=== PATIENT | female | born 1965 | race Native Hawaiian/Other Pacific Islander ===

== ENCOUNTER 2020-11-05 13:11 | Outpatient (CLI) | payer BC, OTHER | END 2020-11-05 22:18 | disposition home or self-care (01) | LOC: INF 13:11 | PROVIDERS: ATTEND Internal Medicine | DX: Z23 Encounter for immunization (principal) | CPT/HCPCS: 96372 ==

== ENCOUNTER 2020-11-27 13:13 | Outpatient (CLI) | payer BC, OTHER | END 2020-11-27 22:22 | disposition home or self-care (01) | LOC: INF | PROVIDERS: ATTEND Internal Medicine | DX: Z23 Encounter for immunization (principal) | CPT/HCPCS: 96372 ==